=== PATIENT | male | born 1975 | race Caucasian/White ===

== ENCOUNTER 2022-04-10 11:17 | Outpatient (CLI) | payer OTHER, SELFPAY ==
--- NOTE | 2022-04-10 10:30 | DI.RAD_ITS ---
Exam(s) XR ANKLE LT COMPLETE EXAM: XR ANKLE LT COMPLETE CLINICAL HISTORY: PAIN IN LT ANKLE AND JOINTS OF LT FOOT-M25.572 TECHNIQUE: 2D digital imaging was performed. Three views. COMPARISON: No exams were available for comparison FINDINGS: BONES: No acute fracture is present. No bony destructive lesion is seen. JOINTS:The ankle mortise is normally aligned. There is narrowing of the medial tibial talar joint as well as talofibular joint and periarticular spurring. There is posterior spurring at the talocalcane al joint. Small enthesophyte is noted at the Achilles insertion. SOFT TISSUE: Normal. IMPRESSION: Degenerative changes. DATA REPOSITORY: RADIATION DOSE DELIVERED:
== END 2022-04-10 11:37 ==
LOC: DI 11:19
PROVIDERS: PCP Family Medicine; Visit Provider Nurse Practitioner Family
DX: M19.072 Primary osteoarthritis, left ankle and foot (principal)
CPT/HCPCS: 73610

== ENCOUNTER 2022-06-07 10:29 | Outpatient (CLI) | payer OTHER, SELFPAY ==
[2022-06-07 10:05] LABS: Abs Immature Grans 0.05 10^3/uL (0.0-0.06); Absolute Basophil Count 0.05 10^3/uL (0.0-0.2); Absolute Eosinophil Count 0.04 10^3/uL (0.0-0.7); Absolute Lymphocyte Count 1.37 10^3/uL (1.2-3.4); Absolute Monocyte Count 0.67 10^3/uL (0.1-0.8); Absolute Neutrophil Count 2.86 10^3/uL (1.2-6.7); Eosinophils % 0.8; HCT 44.3 % (40.0-50.0); HGB 15.1 g/dL (13.5-17.5); Lymphocytes % 27.2; MCH 32.7 pg (27.0-33.0); MCHC 34.1 % (32.0-36.0); MCV 96 fL (80-95); MPV 9.8 fL (8.0-11.0); Monocytes % 13.3; Neutrophils % 56.7; Platelet Count 290 10^3/uL (130-400); RBC 4.62 10^6/uL (4.36-5.78); RDW 13.2 % (11.8-14.1); RDW-SD 46.8 fL; WBC 5.04 10^3/uL (4.4-10.8)
[2022-06-07 10:42] LABS: ALT 45 U/L (16-63); AST 33 U/L (15-37); Albumin 4.1 g/dL (3.4-5.0); Alkaline Phosphatase 106 U/L (46-116); Anion Gap 7.4 mmol/L (3-11); BUN 24 mg/dL (7-18); Bilirubin, Total 0.4 mg/dL (0.2-1.0); CO2 30.6 mmol/L (21.0-32.0); CREATININE 1.7 mg/dL (0.70-1.30); Calcium 9.4 mg/dL (8.5-10.1); Calculated LDL 112 mg/dL (<100); Chloride 102 mmol/L (98-107); Cholesterol 206 mg/dL (<200); Estimated GFR 49.73 (mL/min/1.73m2); Glucose 89 mg/dL (74-106); HDL Cholesterol 47 mg/dL (40-60); Potassium 4.6 mmol/L (3.5-5.1); Sodium 140 mmol/L (136-145); Total Protein 7.2 g/dL (6.4-8.2); Triglyceride 239 mg/dL (<150)
[2022-06-07 11:47] LABS: Iron 96 ug/dL (65-175); Total Iron Binding Capacity 326 ug/dL (250-450); Transferrin Sat 29 % (20-55)
== END 2022-06-07 10:30 | disposition home or self-care (01) ==
LOC: LBO 10:31
PROVIDERS: PCP Family Medicine; Visit Provider Family Medicine
DX: E61.1 Iron deficiency (principal); I10 Essential (primary) hypertension
CPT/HCPCS: 36415; 80053; 80061; 83540; 83550; 85025

== ENCOUNTER 2023-02-01 02:55 | Outpatient (CLI) | payer OTHER, SELFPAY ==
[2023-02-01 13:55] LABS: Anion Gap 8.5 mmol/L (3-11); BUN 21 mg/dL (7-18); CO2 27.5 mmol/L (21.0-32.0); CREATININE 1.2 mg/dL (0.70-1.30); Chloride 104 mmol/L (98-107); Estimated GFR 75.53 (mL/min/1.73m2); Glucose 126 mg/dL (74-106); Potassium 4.2 mmol/L (3.5-5.1); Sodium 140 mmol/L (136-145)
== END 2023-02-01 02:56 | disposition home or self-care (01) ==
PROVIDERS: Absent Provider Family Medicine; PCP Family Medicine; Visit Provider Family Medicine
DX: R79.89 Other specified abnormal findings of blood chemistry (principal)
CPT/HCPCS: 36415; 80048

== ENCOUNTER → 2023-02-21 02:43 | Outpatient (CLI) | payer OTHER, SELFPAY ==
--- NOTE | 2023-02-21 07:30 | DI.RAD_ITS ---
Exam(s) XR LUMBAR SPINE COMPLETE EXAM: XR LUMBAR SPINE COMPLETE CLINICAL HISTORY: Chronic low back pain,m54,50. TECHNIQUE: 2D digital imaging was performed. Five views. COMPARISON: No exams were available for comparison FINDINGS: BONES: No fracture or destructive lesion. Chronic appearing mild anterior wedging of the L5 vertebral body. Mild facet degenerative changes at L4-5 and L5-S1. DISKS: Moderate narrowing of the L5-S1 disc space and endplate osteophytes. ALIGNMENT: Lumbar spinal alignment is within normal limits. SOFT TISSUE: Normal. IMPRESSION: Moderate to severe degenerative changes at L5-S1. DATA REPOSITORY: RADIATION DOSE DELIVERED:
== END ==
PROVIDERS: PCP Family Medicine; Visit Provider Family Medicine
DX: M51.27 Other intervertebral disc displacement, lumbosacral region (principal)
CPT/HCPCS: 72110

== ENCOUNTER 2023-08-09 14:33 | Outpatient (CLI) | payer OTHER, SELFPAY ==
[2023-08-09 14:10] LABS: Abs Immature Grans 0.03 10^3/uL (0.0-0.06); Absolute Basophil Count 0.04 10^3/uL (0.0-0.2); Absolute Eosinophil Count 0.09 10^3/uL (0.0-0.7); Absolute Lymphocyte Count 1.07 10^3/uL (1.2-3.4); Absolute Neutrophil Count 3.88 10^3/uL (1.2-6.7); Basophils % 0.7 %; Eosinophils % 1.6 %; HCT 23.8 % (40.0-50.0); HGB 7.1 g/dL (13.5-17.5); Immature Grans % 0.5 %; Lymphocytes % 19.1 %; MCH 22.9 pg (27.0-33.0); MCHC 29.8 % (32.0-36.0); MCV 77 fL (80-95); MPV 9.4 fL (8.0-11.0); Monocytes % 8.9 %; Neutrophils % 69.2 %; Platelet Count 383 10^3/uL (130-400); RDW 17.8 % (11.8-14.1); RDW-SD 49.3 fL; WBC 5.61 10^3/uL (4.4-10.8)
[2023-08-09 14:54] LABS: Vitamin B12 369 pg/mL (193-986)
[2023-08-09 15:08] LABS: Iron 8 ug/dL (65-175); Total Iron Binding Capacity 386 ug/dL (250-450); Transferrin Sat 2 % (20-55)
== END 2023-08-09 14:34 | disposition home or self-care (01) ==
LOC: LBO 14:34
PROVIDERS: PCP Family Medicine; Visit Provider Family Medicine
DX: D64.9 Anemia, unspecified (principal)
CPT/HCPCS: 36415; 86850; 86900; 86901; 82607; 83540; 83550; 85025

== ENCOUNTER 2023-08-28 01:11 | Outpatient (RCR) | payer OTHER, SELFPAY ==
[2023-08-14] MEDS: SODIUM FER. GLUC./SUC. 125 MG in Normal Saline 100 ML 110 MG IVPB (08:54)
[2023-08-14] MEDS: Normal Saline Flush 10 ML SYR IVP (08:54)
[2023-08-21] MEDS: Normal Saline Flush 10 ML SYR IVP (08:24)
[2023-08-21] MEDS: SODIUM FER. GLUC./SUC. 125 MG in Normal Saline 100 ML 110 MG IVPB (08:24)
[2023-08-28] MEDS: Normal Saline Flush 10 ML SYR IVP (08:14)
[2023-08-28] MEDS: SODIUM FER. GLUC./SUC. 125 MG in Normal Saline 100 ML 110 MG IVPB (08:14)
== END 2023-08-31 23:59 | disposition home or self-care (01) ==
LOC: INF 01:11
PROVIDERS: PCP Family Medicine; Visit Provider Family Medicine
DX: D50.9 Iron deficiency anemia, unspecified (principal)
CPT/HCPCS: 96365; J2916

== ENCOUNTER 2023-10-01 08:47 | Outpatient (CLI) | payer OTHER, SELFPAY ==
[2023-10-01 08:49] LABS: Abs Immature Grans 0.02 10^3/uL (0.0-0.06); Absolute Basophil Count 0.04 10^3/uL (0.0-0.2); Absolute Eosinophil Count 0.11 10^3/uL (0.0-0.7); Absolute Lymphocyte Count 0.88 10^3/uL (1.2-3.4); Absolute Neutrophil Count 2.42 10^3/uL (1.2-6.7); Eosinophils % 2.8 %; HCT 29.2 % (40.0-50.0); HGB 8.3 g/dL (13.5-17.5); Immature Grans % 0.5 %; Lymphocytes % 22.2 %; MCH 20.4 pg (27.0-33.0); MCHC 28.4 % (32.0-36.0); MCV 72 fL (80-95); MPV 9.1 fL (8.0-11.0); Monocytes % 12.6 %; Neutrophils % 60.9 %; Platelet Count 377 10^3/uL (130-400); RBC 4.06 10^6/uL (4.36-5.78); RDW 20.4 % (11.8-14.1); RDW-SD 51.6 fL; WBC 3.97 10^3/uL (4.4-10.8)
[2023-10-01 09:13] LABS: Anisocytosis 2+; Diff Comment RBC Morph Reviewed; Hypochromasia 3+; Microcytosis 2+
[2023-10-01 09:27] LABS: Iron 16 ug/dL (65-175)
== END 2023-10-01 08:48 | disposition home or self-care (01) ==
LOC: LBO 08:47
PROVIDERS: PCP Family Medicine; Visit Provider Family Medicine
DX: E61.1 Iron deficiency (principal); D64.9 Anemia, unspecified
CPT/HCPCS: 36415; 83540; 85025

== ENCOUNTER 2023-12-07 08:03 | Day surgery (SDC) | payer OTHER, SELFPAY ==
--- NOTE | 2023-12-06 20:00 | W.PM.DSUDISC ---
Date of service: 12/07/23 Time of Service: 11:29 Discharge Plan Disposition Patient Disposition: Home Condition: Good Discharge Details Reason For Visit: EGD and colonoscopy Attending Provider: Mk Ugarte Primary Care Provider: Brett Taylor Home Meds and New Rx's Prescriptions: Continued naproxen 500 mg tablet 500 mg PO BID Qty: 60 1RF lisinopril [Zestril] 40 mg tablet 20 mg PO DAILY Qty: 90 3RF bupropion HCl [Wellbutrin XL] 300 mg tablet extended release 24 hr 300 mg PO QAM Qty: 90 3RF escitalopram oxalate [Lexapro] 20 mg tablet 20 mg PO DAILY Qty: 90 3RF ferrous sulfate 325 mg (65 mg iron) tablet 325 mg PO BID Qty: 180 0RF Discontinued bisacodyl [Dulcolax (bisacodyl)] 5 mg tablet,delayed release (DR/EC) 5 mg PO ONCE Qty: 4 0RF Rx Instructions: Take per colonoscopy instructions provided by ordering providers office polyethylene glycol 3350 17 gram/dose powder 17 g PO ONCE Qty: 238 0RF Rx Instructions: Take per colonoscopy instructions provided by ordering providers office Discharge Instructions Instructions: Hiatal hernia Additional Instructions: Bassam, we were able to complete your procedures today, and everything went very smoothly. There are just a few signs of gastritis, or inflammation in your stomach, which could certainly contribute to iron deficiency anemia. A number of things can cause inflammation of the stomach, but some common ones would be the use of nonsteroidal anti-inflammatory medication such as naproxen, and infections of the stomach such as H. pylori. I did multiple biopsies all through your stomach today to see if that turns up any more information. Incidentally, you also have a large hiatal hernia. This occurs when the top part of your stomach slips above your diaphragm, or the breathing muscle that separate your chest from your abdomen. There is an option to repair this with surgery, but I do not perform that operation. If you are interested in meeting with 1 specialist who does, more than happy to help arrange that appointment. Your colonoscopy was fine. You have just a few scattered diverticula along your colon, but nothing that appears worrisome. Diverticula are little weak spots in the muscular part of the colon wall that typically accumulate as we get older. They can get infected or inflamed, when that happens, we caught diverticulitis. It is typically experienced as pain that usually on the left side of their abdomen or down across the middle part. Usually, patients are treated with antibiotics during these flareups. I am skeptical that this would be contributing to your anemia. As I mentioned above, once I have the results from the stomach biopsies which usually take a week or 2, my office will be in touch with any other recommendations. 1. If tolerated, consume a soft, low fiber diet for 1-2 days. 2[address] Do not drive, drink alcohol, operate machinery, make critical decisions, or do activities that require coordination or balance for 24 hours. 3. Because air was put into your colon during the procedure, expelling air from your rectum (passing gas or farting) is normal. 4. You may not have a bowel movement for 1-3 days because of the colonoscopy prep. This is normal. 5. You may experience a sore throat for 24 to 48 hours. You may use throat lozenges or gargle with warm salt water to relieve the discomfort. 6. Because air was put into your stomach during the procedure, you may experience some belching. 7. Go directly to the emergency room if you notice any of the following: Develop chills (warm to touch), or if you have a thermometer and your temperature is above 101 Difficulty breathing or difficultly swallowing Persistent vomiting Severe abdominal pain, other than gas cramps Severe chest pain Black, tarry stools Any bleeding ? exceeding one tablespoon 8. Call your physician if the site where your intravenous was started becomes red, swollen, painful, and warm to touch. 9. Your physician has reviewed your pre-procedure medications. Please continue to take those medications as previously ordered. You will be given specific information/education regarding any changes to your medications before leaving. Activity:: Activity as Tolerated Diet:: As Tolerated Discharge Orders Discharge Orders: Discharge Order (Routine); Ordered 12/06/23 Ordered By: Mk Ugarte DS: Diagnosis Discharge Diagnosis (1) Iron deficiency anemia: Status: Acute Asessment and Plan: Follow-up on biopsy results
--- NOTE | 2023-12-06 20:01 | W.PM.ENDDOP ---
Date of service: 12/07/23 Time of Service: 11:32 Endoscopy Report DATE OF PROCEDURE: 12/07/23 PRE-OP DIAGNOSIS: iron deficiency anemia POST-OP DIAGNOSIS: other (Hiatal hernia, gastritis; diverticulosis) PROCEDURE: EGD with biopsies and colonoscopy SURGEON: Mk Ugarte ANESTHESIA TYPE: General:No Airway ESTIMATED BLOOD LOSS: 10 PATHOLOGY: other (Random biopsies of duodenum, duodenal bulb, gastric antrum, gastric incisura angularis, gastric body) COMPLICATIONS: None DISPOSITION: same day INDICATIONS: Bassam is a 48 year old man with iron deficiency anemia. Additionally he has never had a screening colonoscopy PREP: Miralax/Dulcolax PROCEDURE START TIME: :47 PROCEDURE END TIME: 11:13 COLONOSCOPY RETRACTION TIME: 15 FINDINGS: Grade 4 hiatal hernia, normal-appearing GE junction and Z-line at 36 cm from the incisors, mild antral gastritis, colonic diverticulosis PROCEDURE DESCRIPTION: After the initiation of anesthesia, and with the assistance of a bite block, I advanced a standard gastroscope through the mouth past the hypopharynx and into the esophagus.? Under the direct vision of the scope, I advanced down the esophagus towards the stomach.? The upper, mid, and lower esophagus were all normal and healthy appearing. The Z-line was regular, measured 36 cm from the incisors however, there is a large hiatal hernia with the GE junction, and a significant portion of the gastric cardia and body herniated up above the diaphragmatic hiatus. The Z-line appeared regular, and narrowband imaging was used to assess this area as well. There was no evidence of any Muñoz's esophagus. I advanced down into the stomach and perform retroflexion. Again seen was evidence of grade 4 hiatal hernia. I advanced down around the incisura angularis towards the gastric antrum. There was just a little bit of evidence of antral gastritis here, with no discrete bleeding blood vessels. I advanced through the pylorus into the duodenum, which was all normal. I did perform random biopsies of the duodenum and the duodenal bulb, as well as cold forceps biopsies of the gastric antrum, incisura angularis, gastric body to rule out atrophic gastritis, and celiac disease sources of iron deficiency anemia. There was no concerning bleeding from any of the biopsy sites. I then emptied the stomach, and brought the camera out along the length of the esophagus 1 last time. I did not see any other abnormalities. Next, we moved Bassam into the left lateral decubitus position. I started with an external exam. Perineum and skin were normal, as was the anal verge.? There was no evidence of external hemorrhoids.? Next, I performed a digital rectal exam.? I did not appreciate any abnormal findings.? Next, I advanced a colonoscope into the rectal vault.? I performed retroflexion.? This appeared normal.? Using insufflation, I then advanced the colonoscope beyond the rectal folds and into the sigmoid colon before advancing towards the cecum.? The quality of the prep was excellent.? The scope was noted to be in the cecum by identification of the ileocecal valve and appendiceal orifice.? I then began withdrawing the colonoscope using repeated irrigation as necessary for full evaluation of the colonic mucosa. There were a few diverticula mostly centered in the sigmoid. once the scope was withdrawn to the level of the rectum, great care was taken to examine portions of the rectal folds.? Finally, the scope was withdrawn and the patient was brought to the same-day surgery recovery unit as the anesthetic wore off. ?The findings and instructions were shared with the patient prior to discharge. The [place] bowel prep score from right to left was 3, 3, 3
[2023-12-07 08:36] VITALS: BP 124/97; PULSE 79; RESP 16; TEMP 36.2; O2SAT 100
[2023-12-07] MEDS: Lactated Ringers 1,000 ML 80 ML IV (08:52)
[2023-12-07 10:32] VITALS: BMI 37.0
--- NOTE | 2023-12-07 10:32 | W.ANESPRE ---
General Info Date of Service Date Performed: 12/07/23 Height: 6 ft Weight: 123.7 kg Body Mass Index (BMI): 37.0 Surgical Procedure: Operation Date: 12/07/23 09:50 Proposed Procedure Side Surgeon p Colonoscopy/Gastroscopy Mk Ugarte MD Actual Procedure Side Surgeon p Colonoscopy/Gastroscopy Not Applicable Mk Ugarte MD Pre-Op Diagnosis Post-Op Diagnosis ANEMIA Meds Allergies and Home Medications Allergies Allergy/AdvReac Type Severity Reaction Status Date / Time No Known Allergies Allergy Verified 12/07/23 08:34 Home Medication ?Medication ?Instructions ?Recorded naproxen 500 mg tablet 500 mg PO BID #60 tabs 03/06/23 bupropion HCl 300 mg 24 hr tablet, 300 mg PO QAM #90 tabs 05/24/23 extended release (Wellbutrin XL) escitalopram oxalate 20 mg tablet 20 mg PO DAILY #90 tabs 05/24/23 (Lexapro) ferrous sulfate 325 mg (65 mg 325 mg PO BID #180 tabs 10/08/23 iron) tablet lisinopril 40 mg tablet (Zestril) 20 mg (1/2 x 40 mg) PO DAILY #90 11/20/23 tabs Current Visit Medications: Current Medications Generic Name Dose Route Start Last Admin Trade Name Freq PRN Reason Stop Dose Admin Ringer's Solution 1,000 mls @ 80 mls/hr 12/07/23 06:00 12/07/23 08:52 IV 01/05/24 23:59 80 mls/hr INFUSION MARÍA Administration IV Miscellaneous Supplies 1 each 12/07/23 06:00 Iv Access IV 01/05/24 23:59 DIRECTED MARÍA Sodium Chloride 0 ml 12/07/23 06:00 Normal Saline Flush 10 Ml Syr IV 01/05/24 23:59 PRN PRN Sodium Chloride 0 ml 12/07/23 06:00 Normal Saline 10 Ml Vial IJ 01/05/24 23:59 DIRECTED PRN Sterile Water 0 ml 12/07/23 06:00 Water,Injection,Sterile 10 Ml Vial IJ 01/05/24 23:59 DIRECTED PRN PFSH Active Problems Active Problems: Problem Status Onset Code Iron deficiency anemia Acute D50.9 Hypochromic microcytic anemia Acute ~10/2023 D50.9 Lumbar disc herniation with radiculopathy Acute M51.16 Anemia Chronic D64.9 Radiculopathy of lumbar region Acute M54.16 Patellar tendinitis of right knee Acute M76.51 Low back pain Acute M54.50 Hyperlipidemia Chronic E78.5 Elevated serum creatinine Acute R79.89 Osteoarthritis of left ankle Acute M19.072 Hypertension Chronic I10 Iron deficiency Acute E61.1 Tobacco Smoking/Tobacco Use Status: Former Tobacco Use Alcohol Alcohol Intake: current Alcohol intake frequency: holidays/special occasions only Substance Use Substance use: Never Substance use type: does not use Vital Signs and Lab Results Vital Signs Most Recent Vital Signs in EMR: Most Recent Vital Signs Temp Pulse Resp BP Pulse Ox 36.2 C L 79 16 124/97 H 100 12/07/23 08:36 12/07/23 08:36 12/07/23 08:36 12/07/23 08:36 12/07/23 08:36 Lab Results Blood Type / Crossmatch: No Data to Display Complete Blood Count: No Data to Display Complete Metabolic Panel: No Data to Display Liver Function Panel: No Data to Display Coagulation Panel: No Data to Display Cardiac Panel: No Data to Display Arterial Blood Gas: No Data to Display Venous Blood Gas: No Data to Display Pancreas Panel: No Data to Display Thyroid Panel: No Data to Display Infectious Disease: No Data to Display Blood Cultures: No Data to Display Toxicology Panel: No Data to Display Anesthesia Assessment and Plan Anesthesia History Personal History: No History of Anesthesia Complications Family History: No Family History of Anesthesia Complications Exercise Tolerance Exercise Tolerance: Metabolic Equivalents>4 Pertinent Negatives Pertinent Negatives: No Symptoms of GERD Cardiac & Pulmonary Exam Cardiac Exam: Normal S1/S2 Heart Sounds Pulmonary Exam: Clear Bilateral Breath Sounds Implantable Cardiac Device Does patient have a Pacemaker or an ICD?: No Airway Exam Known Difficult Airway: No Mallampati Class: 2 Mouth Opening: Normal (> 3cm) Thyromental Distance: Greater than 3 cm Facial Hair: Full [place] Neck Range of Motion: Full ROM Neck Circumference: Normal Teeth Condition: Normal Dentition ASA Classification ASA Score: ASA 2 Emergency Case?: No NPO Status NPO Status: NPO Clears >2 hours, Solids >8 hours Anesthesia Plan Resuscitation Status: Full Code Anesthesia Technique: General Anesthesia Airway Planned: Natural Airway Monitors Used: Standard Monitors
--- NOTE | 2023-12-07 10:50 | STOM_PTH ---
PATIENT: Bassam Manriquez LOC: [facility] U#:[id number] AGE/SX: 48/M ROOM: RE12/07/[address]: Mk Ugarte MD : 1975 BED: DIS: 12/07/2023 SPEC #: [id number] RECD: 12/07/23 13:20 STATUS: VALERIO RE #: [id number] GODFREY: 12/07/23 10:[address]: Mk Ugarte DEPT: Surgical Specimen RECD BY: Kelsea Hassan ENTERED: 12/07/23 13:23 SP TYPE: STOMACH OTHR DR: Brett Taylor DO Tissues: 1 - BIOPSY BOWEL 2 - BIOPSY BOWEL 3 - STOMACH BIOPSY 4 - STOMACH BIOPSY 5 - STOMACH BIOPSY Procedures: GROSS AND MICRO LEVEL 4 Comments: [id number]
[2023-12-07 11:25] VITALS: BP 90/68; PULSE 72; RESP 18; TEMP 36.3; O2SAT 95
--- NOTE | 2023-12-07 11:32 | W.ANESPOSTOP ---
Postoperative Evaluation Date, Time and Location Date Performed: 12/07/23 Time Performed: 11:33 Patient Location: Day Surgery Unit Vital Signs Most Recent Imported Vital Signs: Most Recent Vital Signs Temp Pulse Resp BP Pulse Ox 36.2 C L 79 16 124/97 H 100 12/07/23 08:36 12/07/23 08:36 12/07/23 08:36 12/07/23 08:36 12/07/23 08:36 Pain Score Most Recent Pain Score: Most Recent Pain Score Pain Level 0 12/07/23 08:36 Assessment Mental Status: Awake (Alert & Oriented to Patient Baseline) Airway and Respiratory Function: Patent airway with normal (patient baseline) respiratory exam Cardiovascular Function: Hemodynamically Stable Hydration Status: Adequately Hydrated Nausea & Vomiting: No Nausea or Vomiting Pain: Pt. Denies Any Pain Peripheral Nerve Block: Patient did not receive a nerve block
[2023-12-07 11:53] VITALS: BP 123/70; PULSE 70; RESP 20; TEMP 36.7; O2SAT 100
== END 2023-12-07 12:41 | disposition home or self-care (01) ==
LOC: SUR 08:03
PROVIDERS: PCP Family Medicine; Visit Provider Surgery
PROC: (CPT 45378; principal; 2023-12-07 09:45)
DX: D50.9 Iron deficiency anemia, unspecified (principal); K44.9 Diaphragmatic hernia without obstruction or gangrene; K57.30 Diverticulosis of large intestine without perforation or abscess without bleeding; Z12.11 Encounter for screening for malignant neoplasm of colon
CPT/HCPCS: 45378; 43239; 88305; J2001; J2704

== ENCOUNTER 2024-01-09 08:12 | Outpatient (CLI) | payer SELFPAY ==
[2024-01-09 08:36] LABS: Abs Immature Grans 0.02 10^3/uL (0.0-0.06); Absolute Basophil Count 0.04 10^3/uL (0.0-0.2); Absolute Eosinophil Count 0.08 10^3/uL (0.0-0.7); Absolute Lymphocyte Count 1.11 10^3/uL (1.2-3.4); Absolute Monocyte Count 0.55 10^3/uL (0.1-0.8); Basophils % 0.7 %; Eosinophils % 1.4 %; HCT 44.1 % (40.0-50.0); HGB 14.6 g/dL (13.5-17.5); Immature Grans % 0.3 %; Lymphocytes % 19.1 %; MCH 30.7 pg (27.0-33.0); MCHC 33.1 % (32.0-36.0); MCV 93 fL (80-95); MPV 9.4 fL (8.0-11.0); Monocytes % 9.5 %; Platelet Count 285 10^3/uL (130-400); RBC 4.76 10^6/uL (4.36-5.78); RDW 16.3 % (11.8-14.1); RDW-SD 48.7 fL; Reticulocyte 1.6 % (0.5-2.4)
[2024-01-09 09:08] LABS: Ferritin 26 ng/mL (26-388)
[2024-01-09 09:34] LABS: Iron 62 ug/dL (65-175); Total Iron Binding Capacity 343 ug/dL (250-450); Transferrin Sat 18 % (20-55)
== END 2024-01-09 08:13 | disposition home or self-care (01) ==
LOC: LBO 08:15
PROVIDERS: PCP Family Medicine; Visit Provider Nurse Practitioner Family
DX: D50.8 Other iron deficiency anemias (principal)
CPT/HCPCS: 36415; 82728; 83540; 83550; 85025; 85045

== ENCOUNTER 2024-04-20 09:00 | Emergency (ER) | payer OTHER, SELFPAY ==
[2024-04-20 09:07] VITALS: BP 153/108; PULSE 80; RESP 18; TEMP 36.4; O2SAT 96
--- NOTE | 2024-04-20 09:58 | ED.GENADUL_ITS ---
Discharge Plan Disposition Patient Disposition: Home Discharge Details Clinical Impression: Upper back pain on left side Primary Care Provider: Brett Taylor ED Provider: Miguel Paredes Home Meds and New Rx's Prescriptions: No Action naproxen 500 mg tablet 500 mg PO BID Qty: 60 1RF bupropion HCl [Wellbutrin XL] 300 mg tablet extended release 24 hr 300 mg PO QAM Qty: 90 3RF escitalopram oxalate [Lexapro] 20 mg tablet 20 mg PO DAILY Qty: 90 3RF ferrous sulfate 325 mg (65 mg iron) tablet 325 mg PO BID Qty: 180 0RF lisinopril [Zestril] 40 mg tablet 40 mg PO DAILY Qty: 90 3RF Discharge Instructions Instructions: Exercises for Upper Back Pain, Upper Back Pain ED Additional Instructions: At this time your symptoms are consistent with muscular back pain with some irritation of the nerve causing some symptoms in your left arm. If you have any new symptoms or change your condition feel free to return immediately to the emergency department as discussed. Otherwise you may continue to take your prescribed medication or [id number] Motrin, use [id number] lidocaine patches if that seems effective, and use the muscle relaxer as directed on bottle. If not improving please follow-up with your primary care provider for reassessment Referrals: Brett Taylor DO [Primary Care Provider] - (As needed for reassessment or if not improving) HPI General Mode of arrival: ambulatory . Date/Time Provider Initiated Documentation: 04/20/24 09:20 . Limitations to Documentation: no limitations . Information obtained by: patient and RN notes reviewed . History of Present Illness 49 year old M presents to the emergency department with the chief complaint of Left shoulder/scapular pain, described as moderate, Quality is described as aching and sharp, and is localized to the back, left and upper extremity. Patient extremity. Patient started experiencing this hour(s) (12) and it has been constant. other things that improve symptom(s), (Massage) Movement worsens symptoms . Patient notes no other symptoms.. Patient did receive the following treatments prior to arrival, NSAID (Last night) Related Data Home Medications ?Medication ?Instructions ?Recorded ?Confirmed naproxen 500 mg tablet 500 mg PO BID #60 tabs 03/06/23 04/20/24 bupropion HCl 300 mg 24 hr tablet, 300 mg PO QAM #90 tabs 02/22/24 01/19/25 extended release (Wellbutrin XL) escitalopram oxalate 20 mg tablet 20 mg PO DAILY #90 tabs 05/24/23 04/20/24 (Lexapro) ferrous sulfate 325 mg (65 mg 325 mg PO BID #180 tabs 10/08/23 04/20/24 iron) tablet lisinopril 40 mg tablet (Zestril) 40 mg PO DAILY #90 tabs 01/17/24 04/20/24 Previous Rx's ?Medication ?Instructions ?Recorded naproxen 500 mg tablet 500 mg PO BID #60 tabs 03/06/23 bupropion HCl 300 mg 24 hr tablet, 300 mg PO QAM #90 tabs 05/24/23 extended release (Wellbutrin XL) escitalopram oxalate 20 mg tablet 20 mg PO DAILY #90 tabs 05/24/23 (Lexapro) ferrous sulfate 325 mg (65 mg 325 mg PO BID #180 tabs 10/08/23 iron) tablet lisinopril 40 mg tablet (Zestril) 40 mg PO DAILY #90 tabs 01/17/24 Allergies Allergy/AdvReac Type Severity Reaction Status Date / Time No Known Allergies Allergy Verified 04/20/24 09:11 General Stated Complaint: Nk/Back Pain ANAM: 3 Review of Systems Constitutional Constitutional: Denies chills and Denies fever(s) ENT Ears, Nose, Mouth, and Throat: Denies neck pain Cardiovascular Cardiovascular: Denies chest pain, Denies syncope, Denies irregular heart rhythm, Denies lightheadedness and Denies dyspnea Respiratory Respiratory: Denies cough and Denies dyspnea Musculoskeletal Musculoskeletal: Reports as per HPI, Reports back pain, Denies myalgias, Denies arthralgias, Reports muscle cramps, Denies neck pain and Reports tingling Integumentary/Breasts Skin/Breast: Denies rash Neurologic Neurologic: Denies syncope and Reports tingling Exam Const General: cooperative, healthy appearing, comfortable, no acute distress, not diaphoretic and not ill appearing Orientation: alert, awake and oriented x3 Limitations: mental status not altered Neck Neck: normal visual inspection, full ROM, trachea midline, supple and no anterior neck swelling Carotids: normal carotid upstroke and no bruits Resp Effort & Inspection: normal respiratory effort and able to speak in complete sentences Auscultation: clear to auscultation bilaterally Cardio Jugular venous pressure: no JVD Palpation: normal PMI Rate: regular rate Rhythm: regular rhythm Heart Sounds: S1 normal, S2 normal, no click, no gallops, no murmurs and no rubs Bruits: no carotid bruits Back/Spine/Pelvis Cervical Spine: normal cervical lordosis, No cervical muscular tenderness, No pain with cervical ROM, No cervical spasm and No cervical spinal tenderness Thoracic/Lumbar Spine: paraspinal tenderness (Upper third with point tenderness paraspinal tissue approximately T3-T4) and No thoracic spinal tenderness Skin General skin exam: no rashes or lesions noted Neuro General: patient alert, patient awake, patient oriented x3, tone normal and moves all extremities Course Vital Signs Vital signs: Vital Signs Temperature 36.4 C L 04/20/24 09:07 Pulse 80 04/20/24 09:07 Respiratory Rate 18 04/20/24 09:07 Blood Pressure 153/108 H 04/20/24 09:07 Pulse Oximetry 96 04/20/24 09:07 Temperature 36.4 C L 04/20/24 09:07 Temperature Source Oral 04/20/24 09:07 Pulse 80 04/20/24 09:07 Respiratory Rate 18 04/20/24 09:07 Blood Pressure 153/108 H 04/20/24 09:07 Blood Pressure Position Sitting 04/20/24 09:07 Pulse Oximetry 96 04/20/24 09:07 Oxygen Delivery Method Room Air 04/20/24 09:07 Oxygen Flow Rate 0 04/20/24 09:07 Pain Level 10 04/20/24 09:19 Medical Decision Making Patient presenting to the emergency department for chief complaint of left upper back/scapular pain. Patient reports while laying in bed he noticed a muscular spasm to the upper back that would not released and spite of massage and positioning. Patient states that he fell while snowboarding and broke some ribs approximately 1 week ago and has not been able to sleep in his normal position and has had some increased discomfort in his ribs yesterday causing more compensation and use of his left extremity. Patient denies any chest pain, substernal pain radiating to the back, lightheadedness, abnormal heartbeats, shortness of breath headaches or other symptoms. Beyond rib fracture, hyperten mesha, and chronic back pain no other significant contributing past medical history. Review of vital signs does show some hypertension otherwise stable vitals, physical exam shows point tenderness to the paraspinal tissue and left scapular border with reproducible symptoms. Patient also has reproducible symptoms with movement of the shoulder. Exam is otherwise unremarkable and noncontributory, no neurological deficit noted, no range of motion deficit noted normal cardiac and respiratory exam. Chief working diagnosis is paraspinal muscular spasm due to compensation secondary to rib fracture. Considered also is CVA given complaint of some weakness and tingling but do not feel that exam is consistent with that, also considered is aortic aneurysm but again exam is not consistent with this. Did discuss both these diagnosis with patient along with standard ER workup for these. After discussing this and utilizing shared decision making we will treat muscular spasm given reproducible tenderness and likely compensation injury but patient states clear understanding to return for any new or significant worsening of symptoms. After discussion of diagnosis and plan of care patient has no further needs, questions, or concerns and states clear understanding to return to the emergency department for any worsening symptoms. This documentation was generated using [employer] dictation system, please disregard any oddities of phrase or misspellings. Quality:SDOH Health Related Social Needs: Health related social needs problems related to housin g/economic circumstances (Z59.89) [facility] All Active Problems (Updated 04/20/24 @ 10:05 by Miguel Paredes NP) Upper back pain on left side (Acute) Patellofemoral pain syndrome of right knee (Acute 12/06/23) Iron deficiency anemia (Acute) Managed by [facility] Hematology Hypochromic microcytic anemia (Acute ~10/2023) Lumbar disc herniation with radiculopathy (Acute) Per [facility] Sp[facility] noted 08/21/2023 Anemia (Chronic) Radiculopathy of lumbar region (Acute) Per [facility] note on 07/11/23 Patellar tendinitis of right knee (Acute) Low back pain (Acute) Hyperlipidemia (Chronic) [place] score 2.9% 07/23 Elevated serum creatinine (Acute) Osteoarthritis of left ankle (Acute) Hypertension (Chronic) Iron deficiency (Acute) Surgical History History of esophagogastroduodenoscopy (~12/2023) History of colonoscopy (~12/2023) Family History Mother Substance use disorder Depression Hypertension Father Substance use disorder Paternal Grandfather No problems noted. Paternal Grandmother Diabetes Social History Smoking/Tobacco Use Status: Former Tobacco Use tobacco type: cigarettes Quit Date: 04/02/94 Tobacco: How many years used: 5 Second Hand Exposure: Yes Smoking risk assessment performed?: Yes Alcohol Intake: current Alcohol Intake frequency: holidays/special occasions only Drug use: Never Substance use type: does not use Adopted: No Caregiver/Support person: No Foster care: No Household members: spouse and children Housing: house Number of Children: 2 number of grandchildren: 0 Communication Needs: None Education Level: master's degree Do you need help understanding health information?: Never 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 Pets and animals: Yes Pets and animals: cat(s) and dog(s) Sexually active: Yes Do you think of yourself as: straight/heterosexual Current gender identity: male What is your relationship status?: How often do you talk on the phone with friends or family?: once per week How often do you get together with friends or relatives?: once per week Do you belong to any clubs or organized social groups?: yes Panel score (0-1 are the most socially isolated patients): 2 What type of physical activity do you participate in: bicycling and other Details: Hiking; snowboarding Duration: 15-30 minutes/day Frequency: 1-2 times per week Delaney/Scientology: None Special delaney needs: No Seatbelt use: always Helmet use: Yes Helmet use: always Drive intox or ride w/intox regional flatbed truck driver: No Do you feel safe at home: Yes Do you feel safe in your relationship?: Yes
[2024-04-20] MEDS: Cyclobenzaprine 10 MG TAB, 3 TABS/BTL PO (10:09)
[2024-04-20] MEDS: Lidocaine 5% Patch 1 PATCH TP (10:09)
[2024-04-20] MEDS: Ketorolac 15 MG/ML VIAL IM (10:09)
[2024-04-20] MEDS: Cyclobenzaprine 10 MG TAB PO (10:09)
[2024-04-20 10:25] VITALS: BP 150/80; PULSE 82; RESP 18; O2SAT 96
== END 2024-04-20 10:26 | disposition home or self-care (01) ==
PROVIDERS: Emergency Provider Nurse Practitioner Family; PCP Family Medicine
DX: M54.9 Dorsalgia, unspecified (principal); Z59.89 Other problems related to housing and economic circumstances; W00.0XXA Fall on same level due to ice and snow, initial encounter; Y93.23 Activity, snow (alpine) (downhill) skiing, snowboarding, sledding, tobogganing and snow tubing
CPT/HCPCS: 96372; 99284; 99283; J1885

== ENCOUNTER 2024-04-22 10:56 | Outpatient (CLI) | payer OTHER, SELFPAY ==
--- NOTE | 2024-04-22 11:18 | DI.RAD_ITS ---
Exam(s) XR CERVICAL SPINE COMP 4-5V EXAM: XR CERVICAL SPINE COMP 4-5V CLINICAL HISTORY: C6 radic symptoms, M54.12-cervical radiculopathy at C6. TECHNIQUE: 2D digital imaging was performed. Five views were performed. COMPARISON: No exams were available for comparison FINDINGS: BONES: No fracture or destructive lesion. Vertebral bodies are unremarkable. Minimal facet degenera tive changes. No neural foraminal narrowing. DISKS: Intervertebral disc spaces are maintained. Minimal endplate osteophytes. ALIGNMENT: Cervical spinal alignment is within normal limits. The odontoid and atlantoaxial articulat ions are normal. SOFT TISSUE: Normal. The lung apices are clear. IMPRESSION: Mild degenerative changes. DATA REPOSITORY: RADIATION DOSE DELIVERED:
== END 2024-04-22 11:16 ==
LOC: DI 11:01
PROVIDERS: PCP Family Medicine; Visit Provider Family Medicine
DX: M54.12 Radiculopathy, cervical region (principal)
CPT/HCPCS: 72050

== ENCOUNTER 2024-05-01 13:38 | Outpatient (CLI) | payer OTHER, SELFPAY ==
[2024-05-01 12:02] LABS: Abs Immature Grans 0.06 10^3/uL (0.0-0.06); Absolute Basophil Count 0.07 10^3/uL (0.0-0.2); Absolute Eosinophil Count 0.33 10^3/uL (0.0-0.7); Absolute Lymphocyte Count 1.35 10^3/uL (1.2-3.4); Absolute Monocyte Count 0.57 10^3/uL (0.1-0.8); Absolute Neutrophil Count 4.43 10^3/uL (1.2-6.7); Eosinophils % 4.8 %; HGB 14.4 g/dL (13.5-17.5); Immature Grans % 0.9 %; Lymphocytes % 19.8 %; MCH 31.6 pg (27.0-33.0); MCHC 33.5 % (32.0-36.0); MCV 94 fL (80-95); MPV 9.4 fL (8.0-11.0); Monocytes % 8.4 %; Neutrophils % 65.1 %; Platelet Count 348 10^3/uL (130-400); RBC 4.56 10^6/uL (4.36-5.78); RDW 13.6 % (11.8-14.1); RDW-SD 47.5 fL; Reticulocyte 1.2 % (0.5-2.4); WBC 6.81 10^3/uL (4.4-10.8)
[2024-05-01 12:19] LABS: Iron 139 ug/dL (65-175); Total Iron Binding Capacity 288 ug/dL (250-450); Transferrin Sat 48 % (20-55)
[2024-05-01 12:33] LABS: Ferritin 37 ng/mL (26-388)
== END 2024-05-01 13:39 | disposition home or self-care (01) ==
LOC: LBO 13:39
PROVIDERS: PCP Family Medicine; Visit Provider Nurse Practitioner Family
DX: D50.8 Other iron deficiency anemias (principal)
CPT/HCPCS: 36415; 82728; 83540; 83550; 85025; 85045

== ENCOUNTER 2024-08-06 13:08 | Outpatient (CLI) | payer OTHER, SELFPAY ==
--- NOTE | 2024-08-06 12:45 | DI.RAD_ITS ---
Exam(s) XR KNEE RT 3V AP,LAT,KALIE EXAM: XR KNEE RT 3V AP,LAT,KALIE CLINICAL HISTORY: BILATERAL KNEE PAIN. TECHNIQUE: 2D digital imaging was performed. Three views. COMPARISON: CR XR KNEE LT 3V AP,LAT,KALIE from 08/06/2024 FINDINGS: BONES: No acute fracture is present. No bony destructive lesion is seen. There is a degenerative cys t in the medial tibial plateau. JOINTS: The knee is normally aligned. The femoral tibial joint spaces are maintained. There is mild narrowing of the lateral patellofemoral joint and periarticular spurring. There is also mild later al patellar deviation tilt. And no joint effusion is seen. SOFT TISSUE: Normal there are calcifications noted posterior to the tibial plateau. IMPRESSION: Mild degenerative changes. Calcifications posterior to the tibia could be loose bodies versus soft t issue calcifications. DATA REPOSITORY: RADIATION DOSE DELIVERED:
--- NOTE | 2024-08-06 12:45 | DI.RAD_ITS ---
Exam(s) XR KNEE LT 3V AP,LAT,KALIE EXAM: XR KNEE LT 3V AP,LAT,KALIE CLINICAL HISTORY: BILATERAL KNEE PAIN. TECHNIQUE: 2D digital imaging was performed. Three views. COMPARISON: CR XR KNEE RT 3V AP,LAT,KALIE from 08/06/2024 FINDINGS: BONES: No acute fracture is present. No bony destructive lesion is seen. Faint calcifications in d istal quadriceps tendon. JOINTS: The knee is normally aligned. No joint effusion is seen. There is minimal periarticular spurr ing. SOFT TISSUE: Normal. IMPRESSION: Mild degenerative changes. DATA REPOSITORY: RADIATION DOSE DELIVERED:
== END 2024-08-06 13:09 | disposition home or self-care (01) ==
LOC: DIORS 13:08
PROVIDERS: PCP Family Medicine; Visit Provider Student in an Organized Health Care Education/Training Program
DX: M25.561 Pain in right knee (principal); M25.562 Pain in left knee; M22.2X1 Patellofemoral disorders, right knee; M94.262 Chondromalacia, left knee; M94.261 Chondromalacia, right knee
CPT/HCPCS: 73562

== ENCOUNTER 2024-08-06 13:58 | Outpatient (CLI) | payer OTHER, SELFPAY ==
[2024-08-06 14:41] LABS: Abs Immature Grans 0.02 10^3/uL (0.0-0.06); Absolute Basophil Count 0.05 10^3/uL (0.0-0.2); Absolute Lymphocyte Count 1.43 10^3/uL (1.2-3.4); Absolute Monocyte Count 0.59 10^3/uL (0.1-0.8); Absolute Neutrophil Count 4.13 10^3/uL (1.2-6.7); Basophils % 0.8 %; Eosinophils % 1.6 %; HCT 44.7 % (40.0-50.0); HGB 15.4 g/dL (13.5-17.5); Immature Grans % 0.3 %; Lymphocytes % 22.6 %; MCH 32.2 pg (27.0-33.0); MCHC 34.5 % (32.0-36.0); MCV 93 fL (80-95); MPV 9.8 fL (8.0-11.0); Monocytes % 9.3 %; Neutrophils % 65.4 %; Platelet Count 307 10^3/uL (130-400); RBC 4.79 10^6/uL (4.36-5.78); RDW-SD 48.3 fL; WBC 6.32 10^3/uL (4.4-10.8)
[2024-08-06 15:01] LABS: Iron 190 ug/dL (65-175); Total Iron Binding Capacity 266 ug/dL (250-450); Transferrin Sat 71 % (20-55)
[2024-08-06 15:12] LABS: Ferritin 34 ng/mL (26-388)
== END 2024-08-06 13:59 | disposition home or self-care (01) ==
LOC: LBO 13:59
PROVIDERS: PCP Family Medicine; Visit Provider Nurse Practitioner Family
DX: D50.8 Other iron deficiency anemias (principal)
CPT/HCPCS: 36415; 82728; 83540; 83550; 85025